=== PATIENT | male | born 1950 | race Caucasian/White ===

== ENCOUNTER 2020-11-05 06:24 | Day surgery (SDC) | payer MEDICARE, SELFPAY ==
[2020-10-29 13:28] VITALS: BMI 29.1
[2020-11-05 06:42] VITALS: BP 149/72; PULSE 81; RESP 18; TEMP 36.8; O2SAT 97
--- NOTE | 2020-11-05 07:19 | P.CONAN_ITS ---
HPI - Anesthesia Eval Consult details Narrative: 70yo male patient here for colonoscopy [facility] Past Medical History Medical History (Updated 11/05/20 @ 07:25 by Rebecca Hanks) Asthma CAD (coronary atherosclerotic disease) History of shingles On beta nerissa at home Family History Family history of problems with anesthesia: No Surgical History Surgical History History of back surgery History of bilateral carpal tunnel release History of coronary artery bypass graft x 3 Hx of bilateral cataract extraction Hx of colonoscopy History of Problems with Anesthesia: No Social History Social History Do you presently have visiting nurse or other home services: No Smoking Status: Never smoker Use of substances other than those prescribed or required for medical reasons: No Have you been hit, kicked, punched, or otherwise hurt by someone within the past year? If so, by whom?: No Advance Directives: No Advance Directives Information Provided: No Advance Directives on File: No Recently lost weight without trying: No Meds Allergies Allergy/AdvReac Type Severity Reaction Status Date / Time No Known Allergies Allergy Verified 11/05/20 06:33 [No Known Allergies*] Home Medications Medication Instructions Recorded Confirmed Type albuterol sulfate [ProAir HFA] 2 puff INHALATION Q6H PRN 10/29/20 10/29/20 History aspirin [Aspir-81] 81 mg PO DAILY 10/29/20 11/05/20 History budesonide [Pulmicort Flexhaler] 1 inh INHALATION BID 10/29/20 10/29/20 History cholecalciferol (vitamin D3) 25 mcg PO DAILY 10/29/20 10/29/20 History [Vitamin D3] gabapentin 1 cap PO TID 10/29/20 10/29/20 History ibuprofen [Advil] 400 mg PO Q8H PRN 10/29/20 10/29/20 History metoprolol succinate 1 tab PO DAILY 10/29/20 10/29/20 History montelukast 1 tab PO DAILY 10/29/20 10/29/20 History multivitamin 1 tab PO DAILY 10/29/20 10/29/20 History rosuvastatin 1 tab PO BEDTIME 10/29/20 10/29/20 History Exam Exam Date and Time: November 05, 2020 0719 Height,Weight and Vital Signs: Height 5 ft 9.5 in Weight 90.718 kg Last Vital Signs Temp 98.2 F 11/05/20 06:42 Pulse 81 11/05/20 06:42 Resp 18 11/05/20 06:42 BP 149/72 H 11/05/20 06:42 Pulse Ox 97 11/05/20 06:42 Airway Mallampati Class: II TM Dist: >3cm Loose/Missing/Broken Teeth: Yes (Many missing) Heart: RRR Lungs: CTAB Assessment and Plan Assessment Anesthesia Assessment: Anesthesia Plan Discussed and Chart Reviewed Final Anesthetic Review NPO: Yes ASA Class: III Final Preanesthetic Review: No Changes in Pt Med Stat, Meds/Allgs Chart Reviewed, Consent Obtained/Reviewed and Anes Risks/Benef Reviewed Patient Risk: Intermediate Procedure Risk: Low Assessment/Block/Sedation in SS: Assess/Block/Sedation-SS Anesthetic Plan Anesthetic Plan: MAC: Disposition: Standard PACU
[2020-11-05] MEDS: Lactated Ringers 1,000 ML 100 ML IVCONT (07:38)
[2020-11-05 08:28] VITALS: BP 99/58; PULSE 70; RESP 12; TEMP 36.3; O2SAT 94
--- NOTE | 2020-11-05 08:30 | PM.OP ---
Brief Operative Note Date of Service: 11/05/20 Pre-op diagnosis: Screening Post-op diagnosis: other (Colon polyps) Procedure: Colonoscopy to cecum and TI with snare polypectomy and placement of Resolution clips x2, and biopsy and removal of polyp Surgeon: Eulalio Perez Anesthesia: MAC Estimated blood loss (mL): 4.0 Pathology: other (A. Ascending colon polyp B. Polyp at 30cm) Condition: stable Disposition: PACU
[2020-11-05 08:32] VITALS: BP 104/63; PULSE 66; RESP 16; O2SAT 94
[2020-11-05 08:41] VITALS: BP 110/56; PULSE 75; RESP 16; O2SAT 97
[2020-11-05 08:51] VITALS: BP 108/66; PULSE 66; RESP 16; O2SAT 98
--- NOTE | 2020-11-05 08:57 | OP_ITS ---
SURGEON: Eulalio Perez MD INDICATIONS: Full consent has been obtained from him for this, including risks of bleeding and perforation. PREOPERATIVE DIAGNOSIS: POSTOPERATIVE DIAGNOSIS: PROCEDURE PERFORMED: Colonoscopy to the cecum and terminal ileum with snare polypectomy, biopsy and removal of polyp, and placement of 2 resolution clips on ascending colon polypectomy site. ESTIMATED BLOOD LOSS: COMPLICATIONS: ANESTHESIA: Monitored anesthesia care. ASSISTANTS: SPECIMENS: PREOPERATIVE DIAGNOSES: Colorectal cancer screening and personal history of tubular adenoma of the colon. POSTOPERATIVE DIAGNOSES: Colorectal cancer screening and personal history of tubular adenoma of the colon, colon polyps, diverticulosis, and internal hemorrhoids. DESCRIPTION OF PROCEDURE: The patient was placed in the left lateral decubitus position. The digital rectal exam revealed no abnormalities. The Olympus video pediatric colonoscope was entered into the rectum and advanced easily to the cecum. Once in the cecum, I did identify normal-appearing cecal pouch with appendiceal orifice and a normal-appearing ileocecal valve. The terminal ileum was cannulated and appeared normal. The scope was withdrawn back in the colon. The entire cecum and ileocecal valve appeared normal. The scope was then slowly withdrawn assessing all mucosal surfaces carefully. Preparation was excellent. In the proximal ascending colon was a flat but raised approximately 12 mm polyp, which was snared and recovered by suction in piecemeal fashion. The polypectomy site appeared clean, without any sign of residual polyp nor bleeding. However, I did place 2 resolution clips on it with good deployment and good hemostasis due to the fact that he had to go back on his aspirin. At 30 cm, was a flat approximately 3 or 4 mm polyp, which was biopsied and completely removed with cold biopsy forceps. I did not visualize any other polyps, colitis, nor angiodysplasia. There was a moderate amount of sigmoid diverticulosis. In the rectum, scope was retroflexed visualizing internal hemorrhoids, but no other pathology. The rectal mucosa appeared normal. The scope was straightened out and withdrawn from the patient. He tolerated the procedure well and was returned to the recovery area in stable condition. IMPRESSION: 1. Colon polyps, status post snare polypectomy with placement of resolution clips, and biopsy and removal of polyp. 2. Diverticulosis. 3. Internal hemorrhoids. PLAN: The results of the pathology will be checked. I would recommend a repeat colonoscopy in 5 years. He was advised to resume his aspirin by tomorrow. MD BLU Perez/MODL / [id number]
--- NOTE | 2020-11-05 09:20 | HO.POSTANES ---
Post Anesthesia Evaluation Post Anesthesia Evaluation Vital Signs: Vital Signs Temp Pulse Resp BP Pulse Ox 11/05/20 08:51 97.3 F 66 16 108/66 98 11/05/20 08:41 75 16 110/56 L 97 11/05/20 08:32 66 16 104/63 94 11/05/20 08:28 97.3 F 70 12 99/58 L 94 11/05/20 06:42 98.2 F 81 18 149/72 H 97 Anesthesia: Monitored Mental Status: Awake Pain Control: Satisfactory Nausea/Vomiting: None Hydration: Adequate Anesthesia-Related Issues: No Anes. Related Issues
== END 2020-11-05 09:21 | disposition home or self-care (01) ==
PROVIDERS: PCP Internal Medicine; Visit Provider Internal Medicine
PROC: 0DJD8ZZ Inspection of Lower Intestinal Tract, Via Natural or Artificial Opening Endoscopic (ICD-10-PCS; CPT 45378; principal; 2020-11-05 07:30)
DX: Z12.11 Encounter for screening for malignant neoplasm of colon (principal); Z86.010 Personal history of colon polyps; D12.2 Benign neoplasm of ascending colon; D12.5 Benign neoplasm of sigmoid colon; K57.30 Diverticulosis of large intestine without perforation or abscess without bleeding; K64.8 Other hemorrhoids; J45.909 Unspecified asthma, uncomplicated; I25.10 Atherosclerotic heart disease of native coronary artery without angina pectoris; Z95.1 Presence of aortocoronary bypass graft; Z79.51 Long term (current) use of inhaled steroids; Z79.82 Long term (current) use of aspirin; Z79.899 Other long term (current) drug therapy
CPT/HCPCS: 45385; 45380; 88305